=== PATIENT | female | born 1985 | race Caucasian/White ===

== ENCOUNTER 2023-07-19 03:33 | Inpatient (IN) | payer BC ==
[~2023-07-19] VITALS: Ht 162.5 cm; Wt 90.3 kg
[2023-07-19 03:36] VITALS: BP 135/88
[2023-07-19 04:08] LABS: BASO % 0.3 % (0.0-1.0); EOS # 0.1 10*3/uL (0.0-0.4); EOS % 0.6 % (1.0-4.0); HEMATOCRIT 45.5 % (37.0-47.0); LYMPH # 1.1 10*3/uL (1.3-4.4); MEAN CELL VOLUME 101.1 fl (81.0-99.0); MEAN CORPUSCULAR HGB 32.9 pg (27.0-31.0); MEAN CORPUSCULAR HGB CONC 32.5 g/dl (33.0-37.0); MEAN PLATELET VOLUME 8.6 fl (9.6-12.3); MONO # 0.4 10*3/uL (0.1-1.0); MONO % 2.6 % (3.0-9.0); NEUT # 12.3 10*3/uL (2.3-7.9); PLATELET COUNT AUTOMATED 339 10*3/uL (130-400)
[2023-07-19 04:18] LABS: ACT PARTIAL THROMBO TIME 21.9 SECONDS (20.0-32.1)
[2023-07-19 04:25] LABS: ALKALINE PHOSPHATASE 159 U/L (46-116); BUN < 5 mg/dl (9-23); CHLORIDE 105 mmol/L (98-107); ETHYL ALCOHOL 61.6 mg/dl (<3); LIPASE 35 U/L (12-53); POTASSIUM 3.4 mmol/L (3.4-5.1); SGPT/ALT 37 U/L (5-49)
[2023-07-19 05:34] VITALS: BP 133/92
[2023-07-19 08:25] VITALS: BP 134/80
[2023-07-19 10:26] LABS: BILIRUBIN Negative (Negative); BLOOD Trace-Lysed (Negative); CLARITY Clear (Clear); COLOR Yellow (Yellow); GLUCOSE Negative (Negative); KETONE Negative (Negative); LEUKO ESTERASE Negative (Negative); NITRITE Negative (Negative); PH 6.5 (4.5-8.0); SPECIFIC GRAVITY >= 1.030 (1.001-1.030); UROBILINOGEN 0.2 E.U./dl (0.0-1.0)
[2023-07-19 10:35] LABS: URINE AMPHETAMINES Negative (1000ng/ml); URINE BARBITURATES Negative (200ng/ml); URINE BENZODIAZEPINES Negative (200ng/ml); URINE CANNABINOIDS (THC) Negative (50ng/ml); URINE COCAINE Negative (300ng/ml); URINE METHADONE Negative (300ng/ml); URINE OPIATES Negative (300ng/ml); URINE PHENCYCLIDINE Negative (25ng/ml)
[2023-07-19 10:50] LABS: EPITHELIAL CELLS 16-20; RBC 0-2 rbc/hpf (0-2); WBC 0-2 wbc/hpf (0-5)
[2023-07-19] MEDS ORDERED: METRONIDAZOLE500 M1 PO (15:05)
[2023-07-19] MEDS ORDERED: CIPRO500 MG PO (15:05)
[2023-07-19] MEDS ORDERED: ONDANSETRON4 MG SL (15:30)
[2023-07-19 16:00] VITALS: BP 136/86
== END 2023-07-19 16:20 | disposition home or self-care (01) | DRG 872 ==
LOC: ED 03:33 → EDHOLD 06:24
PROVIDERS: Internal Medicine; ADMIT Internal Medicine; ATTEND Internal Medicine
DX: A41.9 Sepsis, unspecified organism (principal); K51.00 Ulcerative (chronic) pancolitis without complications; R65.20 Severe sepsis without septic shock; K21.9 Gastro-esophageal reflux disease without esophagitis; F32.A Depression, unspecified; F41.0 Panic disorder [episodic paroxysmal anxiety]; R73.9 Hyperglycemia, unspecified; K52.9 Noninfective gastroenteritis and colitis, unspecified; F17.210 Nicotine dependence, cigarettes, uncomplicated; Z98.891 History of uterine scar from previous surgery; Z71.6 Tobacco abuse counseling